=== PATIENT | male | born 1965 | race Caucasian/White ===

== ENCOUNTER 2018-06-21 06:55 | Day surgery (SDC) | payer BC, OTHER ==
[2018-06-16 14:38] VITALS: BMI 28.1
[~2018-06-21 06:55] MED LIST: LACTATED RINGERS 1,000 ML IV SCH; LIDOCAINE 1% 20 ML VIAL (10MG/ML) FOR IV START INTRADERMA PRN
[2018-06-21] MEDS ORDERED: LACTATED RINGERS 1,000 ML IV ONE (07:18)
[2018-06-21 07:22] VITALS: TEMP 98.3
[2018-06-21] MEDS ORDERED: PROPOFOL 10 MG/ML 20 ML VIAL IV ONE (07:41)
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
--- NOTE | 2018-06-21 08:09 | P.OP ---
Date of Procedure: 06/21/18 Preoperative Diagnosis: GI bleed Hemorrhoids Postoperative Diagnosis: Internal hemorrhoids Normal colonoscopy No evidence of GI bleed Procedure(s) Performed: Colonoscopy Anesthesia: MAC Surgeon: Jordan Romo Pathology: none sent Condition: stable Disposition: PACU Description of Procedure: The patient's placed on the endoscopy table in the lateral position. He received IV sedation. Digital rectal exam was performed which revealed some minimal internal hemorrhoids. The flexible colonoscope was then placed patient anus and passed throughout the entire colon. The ileocecal valve was visualized. The cecum, ascending and transverse colon appeared normal. The descending and sigmoid colon appeared normal. The scope was then brought back the rectum and this appeared normal. The scope was then withdrawn through the anus and there was some minimal internal hemorrhoids. There is no evidence of any GI bleed visualized during the colonoscopy. It was presumed that his previous GI bleed was due to his internal hemorrhoids. Scope was withdrawn there was no significant external hemorrhoids. The scope was withdrawn for patient.
[2018-06-21 08:14] VITALS: RESP 16
[2018-06-21 08:28] VITALS: BP 115/69; PULSE 58
== END 2018-06-21 08:47 | disposition home or self-care (01) ==
LOC: ORWHC2ENDO 06:55
PROVIDERS: ATTEND Surgery
DX: K64.8 Other hemorrhoids (principal); K21.9 Gastro-esophageal reflux disease without esophagitis; L30.9 Dermatitis, unspecified; Z87.891 Personal history of nicotine dependence; Z88.2 Allergy status to sulfonamides; Z88.8 Allergy status to other drugs, medicaments and biological substances
CPT/HCPCS: 45378; J2704

== ENCOUNTER 2019-03-22 12:12 | Day surgery (SDC) | payer BC ==
[2019-03-22 12:44] VITALS: TEMP 97.8
[2019-03-22 13:29] VITALS: PULSE 68; RESP 16
[2019-03-22 13:45] VITALS: BP 124/78
--- NOTE | 2019-03-22 13:45 | US ---
ULTRASOUND GUIDED FNA THYROID BIOPSY: CLINICAL HISTORY: Right thyroid nodule FINDINGS: The procedure was explained to the patient. The risks, complications, benefits and alternatives were discussed and any questions were answered. Informed consent was obtained. Patient was placed supin e on the ultrasound table and prepped and draped in the usual sterile fashion. Utilizing a 25 gauge needle, five passes were made into the right thyroid nodule. Patient was stable throughout the procedure. Pathology is pending. All elements of maximal barrier technique were utilized. IMPRESSION: 1. Successful ultrasound guided FNA thyroid biopsy.
== END 2019-03-22 13:40 | disposition home or self-care (01) ==
LOC: RADPROMAIN 12:12
PROVIDERS: ATTEND Family Medicine
DX: E04.9 Nontoxic goiter, unspecified (principal); R89.7 Abnormal histological findings in specimens from other organs, systems and tissues
CPT/HCPCS: 10005; 88173; 88305